=== PATIENT | female | born 1965 | race Caucasian/White ===

== ENCOUNTER 2022-07-26 14:50 | Emergency (ER) | payer OTHER ==
--- NOTE | 2022-07-26 15:15 | ED Physician Documentation ---
History of Present Illness - Stated complaint Stated Complaint: RAPID HR - Chief complaint Chief Complaint: Cardiac - History obtained from History obtained from: Patient - Additonal information Additional information: 56-year-old woman with history of hypothyroidism, gastric bypass, and long COVID presents for the evaluations of rapid heart rate and palpitations. She lives in [place], she traveled here a couple of days ago and her symptoms preceded her travel. She is been having increasing resting heart rates with occasional skipped beats. Its associated with some lightheadedness but absolutely no shortness of breath. During her COVID, she did have a pneumothorax and complication of PE. After COVID she was having tachycardia and was maintained on metoprolol until about 6 months ago. She is still on Eliquis which she has been completely compliant with. She denies pedal edema or calf pain. There is no chest pain with this. Review of Systems Ten Systems: 10 systems reviewed and negative Constitutional: reports: Reviewed and negative. denies: Chills, Myalgias, Fatigue, Weight Loss Eyes: denies: Loss of vision, Decreased vision Ears: denies: Loss of hearing, Ear pain Nose: reports: Rhinorrhea / runny nose (Chronic) Cardiac: reports: Palpitations. denies: Chest pain / pressure Respiratory: denies: Dyspnea, Cough PD PAST MEDICAL HISTORY - Present Medications Home Medications: Ambulatory Orders Medication Instructions Recorded Confirmed Apixaban [Eliquis] 5 mg PO BID 07/26/22 07/26/22 Cetirizine [ZyrTEC] 10 mg PO DAILY 07/26/22 07/26/22 Fluticasone [Flonase] 2 spray LAKESHIA BID 07/26/22 07/26/22 Levothyroxine [Synthroid] 50 mcg PO DAILY 07/26/22 07/26/22 Metoprolol Succinate [Toprol Xl] 0.5 tab PO BID #30 tablet 07/26/22 hydrOXYzine HCL [Hydroxyzine HCl] 25 mg PO Q6HR PRN 07/26/22 07/26/22 - Allergies Allergies/Adverse Reactions: Allergies Allergy/AdvReac Type Severity Reaction Status Date / Time No Known Drug Allergies Allergy Verified 07/26/22 15:04 PD ED PE NORMAL - Vitals Vital signs reviewed: Yes - General General: Alert and oriented X 3, Other (She has a resting heart rate in the low 100s, on the monitor it is normal sinus rhythm with slight tachycardia and modestly frequent PVCs, several per minute.) - HEENT HEENT: PERRL, EOMI - Neck Neck: Supple, no meningeal sign, No bony TTP - Cardiac Cardiac: No murmur, Other (Rapid and regular with some ectopy corresponding to PVCs on the monitor) - Respiratory Respiratory: No respiratory distress, Clear bilaterally - Abdomen Abdomen: Normal bowel sounds, Soft, Non tender - Back Back: No CVA TTP, No spinal TTP - Derm Derm: Normal color, Warm and dry - Extremities Extremities: No edema, No calf tenderness / cord - Neuro Neuro: Alert and oriented X 3, Normal speech Results - Vitals Vitals: Vital Signs - 24 hr 07/26/22 07/26/22 07/26/22 15:00 15:32 16:02 Temperature 36.6 C Heart Rate 104 H 101 H 101 H Respiratory 16 17 18 Rate Blood Pressure 139/95 H 120/81 H 112/66 O2 Saturation 100 100 100 07/26/22 16:30 Temperature Heart Rate 95 Respiratory 15 Rate Blood Pressure 124/79 O2 Saturation 99 Oxygen O2 Source Room air - EKG (time done) 1455 Rate: Rate (enter#) (97) Rhythm: Sinus tachycardia (w pvcs) [place]: Normal Intervals: Normal OR QRS: Normal Ischemia: Non specific changes - Labs Labs: Laboratory Tests 07/26/22 07/26/22 07/26/22 15:22 15:22 15:22 Hgb 14.5 Hct 43.1 Sodium 138 Potassium 3.6 Chloride 107 Carbon Dioxide 22 Anion Gap 9.0 BUN 21 H Creatinine 0.8 Estimated GFR (MDRD) 74 L Glucose 109 H Calcium 9.4 Magnesium 2.1 Total Bilirubin 0.6 AST 26 ALT 44 Alkaline Phosphatase 144 H Total Protein 7.3 Albumin 4.2 Globulin 3.1 Albumin/Globulin Ratio 1.4 TSH 1.40 Free T4 1.34 Free T3 pg/mL 3.85 PD MEDICAL DECISION MAKING - ED course ED course: This is a well-appearing 56-year-old woman presents for the evaluation of tachycardia and PVCs. Previously was on metoprolol but stopped several months ago. She appears well. PE is considered, but she is therapeutically anticoagu lated and has no shortness of breath and no current DVT type symptoms. EKG shows sinus tachycardia with PVCs. No other arrhythmias. Departure - Departure Disposition: 01 Home, Self Care Clinical Impression: Sinus tachycardia, Premature ventricular contractions Condition: Good Record reviewed to determine appropriate education?: Yes Instructions: ED Palpitations Prescriptions: Metoprolol Succinate [Toprol Xl] 0.5 tab PO BID #30 tablet Comments: You were seen today for rapid heart rate and some premature ventricular contractions. Your EKG did not show other abnormalities such as atrial fibrillation. Lab work showed a mildly elevated BUN possibly consistent with dehydration. Thyroid function was normal with a TSH of 1.4, free T3 of 3.85, and free T4 of 1.34, all normal. Your hemoglobin hematocrit were normal, i.e. you are not anemic. We are starting your metoprolol back at the prior dose, keep an eye on your heart rates, if they remain high you can easily double it. Call your doctor to arrange a follow-up appointment, make the next available appointment. In the interim, return anytime if worse or if new symptoms develop.
[2022-07-26 15:45] LABS: ALBUMIN 4.2 g/dL (3.2-5.5); ALBUMIN/GLOBULIN RATIO 1.4 (1.0-2.2); BILIRUBIN,TOTAL 0.6 mg/dL (0.2-1.0); CALCIUM 9.4 mg/dL (8.5-10.3); CREATININE 0.8 mg/dL (0.4-1.0); MAGNESIUM 2.1 mg/dL (1.7-2.8); POTASSIUM 3.6 mmol/L (3.5-5.0); TOTAL PROTEIN 7.3 g/dL (6.7-8.2)
[2022-07-26 16:00] LABS: THYROID STIMULATING HORMONE 1.4 uIU/mL (0.34-5.60)
[2022-07-26 16:02] LABS: FREE T3 3.85 pg/mL (2.5-3.9); FREE T4 (FREE THYROXINE) 1.34 ng/dL (0.58-1.64)
[2022-07-26 16:13] LABS: HCT - HEMATOCRIT 43.1 % (37.0-47.0); HGB - HEMOGLOBIN 14.5 g/dL (12.0-16.0)
[2022-07-26 16:33] VITALS: BP 124/79
[2022-07-26] MEDS ORDERED: METOPROLOL SUCCINATE 25 MG TABLET PO STA (16:37)
== END 2022-07-26 16:55 | disposition home or self-care (01) ==
LOC: ED 14:50
DX: I49.3 Ventricular premature depolarization (principal); R00.0 Tachycardia, unspecified
CPT/HCPCS: 36415; 80053; 83735; 84439; 84443; 84481; 85014; 85018; 93005; 99284; A9270